=== PATIENT | female | born 1975 | race Two or more races ===

== ENCOUNTER 2024-02-11 12:50 | Inpatient (IN) | payer OTHER ==
[~2024-02-11] VITALS: Ht 172.7 cm; Wt 73.9 kg
--- NOTE | 2024-02-11 15:33 | NUR ---
SE RECIBE PACIENTE ALERTA Y ORIENTADA X 3 ESFERAS LA CUAL INDICA QUE [facility]O [facility] EL CUAL DESCONOCE EL NOMBRE Y RECIBIO TRATAMIENTO INTRAVENOSO EN ANTEBRAZO DERECHO. REFIERE QUE HACE 3 GIBBONS PRESENTA DOLOR EN EL ANTEBRAZO DERECHO, EDEMA Y LO SIENTE CALIENTE AL TACTO.
[2024-02-11] MEDS ORDERED: CEFTRIAXONE SODIUM 2,000 MG VIAL IV ONE (16:15)
--- NOTE | 2024-02-11 16:28 | NUR ---
SE ORIENTA A FEMINA SOBRE TRATAMIENTO MEDICO. SE COLECTAN MUESTRAS DE LABORATORIO Y SE CANALIZA A PACIENTE BAJO MEDIDAS ASEPTICAS. SE ADMINISTRA MEDICAMENTO RAUL ORDEN MEDICA. SE NOTIFICA X-RAY.
[2024-02-11 17:15] LABS: HEMATOCRIT 32.2 % (36.0-45.00); HEMOGLOBIN 10.2 g/dL (12.0-15.00); MEAN CORPUSCULAR HEMOGLOBIN 24.5 pg (27.00-32.0); MEAN CORPUSCULAR HGB CONC 31.8 g/dl (32.0-36.0); PLATELET COUNT 354 K/uL (150-450); RED BLOOD COUNT 4.19 M/uL (4.00-6.00); RED CELL DISTRIBUTION WIDTH 17.7 % (11.5-14.5)
[2024-02-11 17:41] LABS: URINE APPEARANCE Turbid; URINE BILIRRUBIN Negative (NEGATIVE); URINE BLOOD Negative; URINE COLOR Dark Yellow; URINE GLUCOSE Negative (NEGATIVE); URINE KETONE Trace (NEGATIVE); URINE LEUKOCYTE Trace; URINE NITRATE Negative; URINE PROTEIN Trace (NEGATIVE)
[2024-02-11 17:44] LABS: URINE RBC 5.3 uL (0.0-20.8); URINE WBC 254.2 uL (0.0-23.2)
[2024-02-11 17:44] LABS: ALBUMIN 3.6 gm/dL (3.4-5.0); BILIRUBIN TOTAL 0.4 mg/dL (0.3-1.2); CALCIUM 9.2 mg/dL (8.5-10.1); CREATININE SERUM 0.78 mg/dL (0.55-1.02); GFR 79.16; POTASSIUM 4.73 mEq/L (3.5-5.1); TOTAL PROTEIN 9.3 gm/dL (6.4-8.2)
[2024-02-11 18:13] LABS: URINE BACTERIA > 9821.5 uL (0.0-1933); URINE CAST 0.29 uL (0.0-1.40); URINE EPITHELIAL CELLS > 201.7 uL (0.0-38.8)
[2024-02-11 18:13] LABS: BILIRUBIN,CONJUGATED 0.11 mg/dL (0.0-0.2); BILIRUBIN,UNCONJUGATED 0.29 mg/dL (0.0-0.6)
[2024-02-11] MEDS ORDERED: TRAMADOL HCL 50 MG TABLET PO ONE (21:45)
[2024-02-11] MEDS ORDERED: VANCOMYCIN HCL 1,000 MG VIAL IV SCH (22:05)
[2024-02-11] MEDS ORDERED: DEXTROSE 50 % IN WATER 0.5 G/ML DISP.SYRIN IV PRN (22:15)
[2024-02-11] MEDS ORDERED: 0.9 % SODIUM CHLORIDE 1,000 ML IV SCH (22:15)
[2024-02-11] MEDS ORDERED: ONDANSETRON HCL 4 MG in 0.9 % SODIUM CHLORIDE 50 ML IV PRN (22:15)
[2024-02-11] MEDS ORDERED: INSULIN LISPRO 1,000 UNIT/10 ML UNITS SUBCUTANEO PRN (22:15)
[2024-02-11] MEDS ORDERED: ACETAMINOPHEN 500 MG GEL..CAP PO PRN (22:15)
--- NOTE | 2024-02-11 22:17 | NUR ---
SE ADMINISTRA TX RAUL ORDEN MEDICA BAJO MEDIDAS ASEPTICAS. SE ORIENTA A PTE QUIEN REFIERE ENTENDER Y ACEPTAR.
[2024-02-12 02:00] VITALS: BP 118/69; O2SAT 96
[2024-02-12 02:49] VITALS: BP 118/69
[2024-02-12 04:00] VITALS: BP 114/80; O2SAT 97
[2024-02-12 08:44] VITALS: BP 123/88; O2SAT 98
[2024-02-12] MEDS ORDERED: FAMOTIDINE/PF 20 MG in 0.9 % SODIUM CHLORIDE 8 ML IV PUSH SCH (09:00)
[2024-02-12] MEDS ORDERED: ENOXAPARIN SODIUM 40 MG/0.4 ML SYRINGE SUBCUTANEO SCH (09:00)
[2024-02-12] MEDS ORDERED: CEFTRIAXONE SODIUM 2,000 MG in 0.9 % SODIUM CHLORIDE 100 ML IV SCH (09:00)
[2024-02-12 14:52] LABS: COCAINE NEGATIVE (NEGATIVE); METHADONE NEGATIVE (NEGATIVE); OPIATES NEGATIVE (NEGATIVE); THC ( Cannabinoids) NEGATIVE (NEGATIVE)
[2024-02-12] MEDS ORDERED: BENZONATATE 200 MG CAPSULE PO PRN (16:00)
[2024-02-12 16:41] VITALS: BP 130/87
[2024-02-12 23:38] LABS: INR 1.01; PARTIAL THROMBOPLASTIN TIME 25.4 SECONDS (22.0-34.0)
[2024-02-13 01:10] VITALS: BP 123/77; O2SAT 97
[2024-02-13 09:49] VITALS: BP 137/69
[2024-02-13 16:26] VITALS: BP 130/89; O2SAT 100
[2024-02-14 01:48] VITALS: BP 119/75; O2SAT 100; O2SAT 97
[2024-02-14 08:43] VITALS: BP 130/72; O2SAT 99
[2024-02-14] MEDS ORDERED: VANCOMYCIN HCL 1,000 MG VIAL IV SCH (21:00)
== END 2024-02-14 17:30 | disposition home or self-care (01) | DRG 603 ==
LOC: ER 12:52 → MEDI 22:11
PROVIDERS: General Practice; ADMIT Specialist/Technologist, Other Nephrology; ATTEND Specialist/Technologist, Other Nephrology
PROC: B54PZZZ Ultrasonography of Bilateral Upper Extremity Veins (ICD-10-PCS; principal; 2024-02-11)
DX: L02.413 Cutaneous abscess of right upper limb (principal); L03.114 Cellulitis of left upper limb; M79.602 Pain in left arm; Z78.9 Other specified health status; I80.9 Phlebitis and thrombophlebitis of unspecified site; Z20.822 Contact with and (suspected) exposure to COVID-19

== ENCOUNTER 2024-02-19 14:31 | Emergency (ER) | payer OTHER ==
[~2024-02-19] VITALS: Ht 165.1 cm; Wt 73.9 kg
[2024-02-19 15:43] VITALS: BP 133/76; O2SAT 100
[2024-02-19] MEDS ORDERED: ELIQUIS2.5 MG PO (15:43)
[2024-02-19] MEDS ORDERED: TRAMADOL HCL 50 MG TABLET PO ONE (17:15)
== END 2024-02-19 20:24 | disposition home or self-care (01) ==
LOC: ER 14:33
DX: S00.33XA Contusion of nose, initial encounter (principal); W19.XXXA Unspecified fall, initial encounter; Y93.89 Activity, other specified; Y92.89 Other specified places as the place of occurrence of the external cause; Y99.9 Unspecified external cause status; J34.2 Deviated nasal septum; Z88.6 Allergy status to analgesic agent

== ENCOUNTER → 2024-02-19 | Outpatient (CLI) | payer OTHER ==
[~2024-02-19] MED LIST: ELIQUIS2.5 MG PO
== END | disposition home or self-care (01) ==
LOC: SONOGRAMA 11:15
DX: R10.2 Pelvic and perineal pain (principal); J11.1 Influenza due to unidentified influenza virus with other respiratory manifestations; D64.9 Anemia, unspecified; E86.0 Dehydration; B34.9 Viral infection, unspecified